=== PATIENT | female | born 1975 | race Caucasian/White ===

== ENCOUNTER 2021-11-03 10:30 | Emergency (ER) | payer OTHER ==
[2021-11-03] MEDS ORDERED: CYCLOBENZAPRINE5 MG PO (13:37)
[2021-11-03] MEDS ORDERED: NAPROSYN500 MG PO (13:37)
== END 2021-11-03 13:50 | disposition home or self-care (01) ==
LOC: ER1 10:30
DX: S39.012A Strain of muscle, fascia and tendon of lower back, initial encounter (principal); E27.9 Disorder of adrenal gland, unspecified; M79.605 Pain in left leg; M79.604 Pain in right leg; X50.9XXA Other and unspecified overexertion or strenuous movements or postures, initial encounter
CPT/HCPCS: 72131; 81001; 87086; 96372; 99284; J1885